=== PATIENT | female | born 1960 | race Caucasian/White ===

== ENCOUNTER → 2024-02-28 08:07 | Outpatient (REF) | payer OTHER, SELFPAY | LOC: HWRCS 08:07 | PROVIDERS: ATTENDING PHYSICIAN Internal Medicine Cardiovascular Disease; FAMILY PHYSICIAN Family Medicine | DX: R07.2 Precordial pain (principal); E78.5 Hyperlipidemia, unspecified; I49.9 Cardiac arrhythmia, unspecified | CPT/HCPCS: 93306 ==

== ENCOUNTER → 2024-03-02 07:25 | Outpatient (REF) | payer OTHER, SELFPAY | LOC: DHCBC/DCA 07:25 | PROVIDERS: ATTENDING PHYSICIAN Internal Medicine Cardiovascular Disease; FAMILY PHYSICIAN Family Medicine | DX: R07.2 Precordial pain (principal); E78.5 Hyperlipidemia, unspecified; I49.9 Cardiac arrhythmia, unspecified | CPT/HCPCS: 78452; 93017; A9500; J2785 ==

== ENCOUNTER → 2024-09-11 08:46 | Outpatient (REF) | payer OTHER, SELFPAY | LOC: WDC 08:46 | PROVIDERS: ATTENDING PHYSICIAN Obstetrics & Gynecology; FAMILY PHYSICIAN Family Medicine | DX: Z78.0 Asymptomatic menopausal state (principal); Z12.31 Encounter for screening mammogram for malignant neoplasm of breast | CPT/HCPCS: 77063; 77067; 77080 ==

== ENCOUNTER 2025-02-28 06:25 | Day surgery (SDC) | payer OTHER, SELFPAY | END 2025-02-28 15:57 | disposition home or self-care (01) | LOC: GI 06:25 | PROVIDERS: ATTENDING PHYSICIAN Internal Medicine Gastroenterology | DX: Z12.11 Encounter for screening for malignant neoplasm of colon (principal); D12.0 Benign neoplasm of cecum; D12.2 Benign neoplasm of ascending colon; D12.3 Benign neoplasm of transverse colon; D12.4 Benign neoplasm of descending colon; K63.5 Polyp of colon; D12.8 Benign neoplasm of rectum; K57.30 Diverticulosis of large intestine without perforation or abscess without bleeding; K62.89 Other specified diseases of anus and rectum; K22.70 Barrett's esophagus without dysplasia; K22.10 Ulcer of esophagus without bleeding; K21.00 Gastro-esophageal reflux disease with esophagitis, without bleeding; K44.9 Diaphragmatic hernia without obstruction or gangrene; Z86.0101 Personal history of adenomatous and serrated colon polyps | CPT/HCPCS: 45385; 45380; 43239; 88305 ==

== ENCOUNTER → 2025-03-04 08:12 | Outpatient (REF) | payer OTHER, SELFPAY | LOC: HWRAD 08:12 | PROVIDERS: ATTENDING PHYSICIAN Internal Medicine Critical Care Medicine; FAMILY PHYSICIAN Family Medicine | DX: Z87.891 Personal history of nicotine dependence (principal) | CPT/HCPCS: 71271 ==

== ENCOUNTER 2025-03-26 07:29 | Emergency (ER) | payer OTHER, SELFPAY ==
[2025-03-26 07:32] VITALS: BP 143/101
[2025-03-26 08:30] LABS: ALT (SGPT) 41 U/L (0-35); AST (SGOT) 45 U/L (14-36); Albumin 4.3 g/dl (3.5-5.0); Alkaline Phosphatase 78 U/L (38-126); Blood Urea Nitrogen 17 mg/dl (7-17); Calcium 9.1 mg/dl (8.4-10.2); Carbon Dioxide 25 mmol/L (22-30); Chloride 106 mmol/L (98-107); Glucose 123 mg/dl (70-99); Potassium 3.5 mmol/L (3.5-5.1); Sodium 139 mmol/L (135-145); Total Protein 6.8 g/dl (6.3-8.2); eGFR > 60.00
[2025-03-26 08:31] LABS: % Basophils 0.7 % (0-2); % Eosinophils 3.1 % (0-6); % Immature Granulocytes 0.1 % (0-0.5); % Lymphocytes 13.6 % (20.5-51.1); % Monocytes 6.5 % (1.7-9.3); Absolute Basophils 0.1 10^3/uL (0-0.2); Absolute Eosinophils 0.2 10^3/uL (0-0.7); Absolute Monocytes 0.5 10^3/uL (0.1-0.6); Absolute Neutrophils 5.4 10^3/uL (1.4-6.5); Hematocrit 36.9 % (37.0-47.0); Hemoglobin 11.8 g/dL (12.0-16.0); Mean Platelet Volume 10.7 fL (7.4-10.4); Nucleated Red Blood Cells % 0 %; Platelet Count 191 10^3/uL (130-400); Red Blood Cell Count 4.92 10^6/uL (4.20-5.40); Red Cell Dist. Width 16.6 % (11.5-14.5); White Blood Cell Count 7.1 10^3/uL (4.8-10.8)
--- NOTE | 2025-03-26 08:36 | ED.GENMED ---
History of Present Illness
General
Chief Complaint: Abdominal Pain
Source: patient
Exam Limitations: none
Time Seen by Provider: 03/26/25 07:52
Nursing documentation reviewed up to this point in time: agreed with
History of Present Illness
History of Present Illness:
65-year-old female past medical history of hypertension hyperlipidemia presenting to the emergency department today with concerns of nausea vomit diarrhea starting yesterday morning ongoing today. Also noted some red blood in her stool this
morning. Has had some intermittent abdominal pain mainly to the left lower quadrant. Had 1 episode of vomiting yesterday multiple episodes of diarrhea yesterday as well.
Past History
Past History
ED Past Medical History: Arrthythmia, COPD, HTN and Hypercholesterolemia
ED Past Surgical History: Cardiac (Cardiac catheter several years ago, normal coronaries.) and
Social History
Tobacco: Smoker
Alcohol: Occasional
Drug: None
Personal:
Living: with family
Employment: Employed
Family History
Family History: Hypertension and Other (Cerebral aneurysm)
Review of Systems
Review of Systems
Allergies reviewed?: Yes
All Other Systems: ROS reviewed and negative except as documented in HPI and ROS
Phy Exam
Physical Exam
Physical Exam:
GENERAL: Alert , in no apparent distress
EYE: pupils equal and reactive
NECK: Supple, no significant adenopathy.
ENT: o/p clr, mmm.
CARDIAC: Regular rate and rhythm .
LUNGS: Clear breath sounds bilaterally, no acute respiratory distress, no wheezes/rales/rhonchi
ABDOMEN: Mild pain to the left lower quadrant, rectal examination with multiple external hemorrhoids with no active bleeding. Stool was brown in color vaguely guaiac positive.
NEUROLOGICAL: Alert and oriented, no focal neuro deficits
SKIN: Warm and dry, skin intact.
MUSCULOSKELETAL: No edema, well perfused.
PSYCH: Normal and appropriate interaction.
Course
Orders/Labs/Results
Orders:
Orders
03/26/25 08:11
Complete Blood Count/With Diff Urgent
Comprehensive Metabolic Panel Urgent
Lipase Urgent
Comment: ADD ON
03/26/25 08:31
CT Abd/Pel (IV only)-DH only Urgent
Comment:
Reason For Exam: llq pain
0.9% Sodium Chloride 1000 ml [Nss] 1,000 ml IV BOLUS
Ondansetron Injectable [Zofran] 4 mg IV NOW STA
03/26/25 08:39
Add On- LAB Urgent
Tests Added?: lipase
03/26/25 08:52
Dicyclomine HCl [Bentyl] 20 mg IM NOW STA
03/26/25 09:23
Urinalysis Reflex To Culture Urgent
Date Specimen was Collected: 03/26/25
Time Specimen was Collected: 08:58
Urine Microscopic Reflex Cult Urgent
Urine Culture Urgent
JOSE Source: U
Specimen Description:
Date Specimen was Collected: 03/26/25
Time Specimen was Collected: 08:58
03/26/25 11:43
Amoxicillin 875 mg/Clav 125 mg [Augmentin 875 mg/125 mg] 1 tablet PO NOW STA
Abnormal Lab Results
03/26/25 03/26/25
08:11 09:23
Hgb 11.8 L g/dL
(12.0-16.0)
Hct 36.9 L %
(37.0-47.0)
MCV 75.0 L fL
(81.0-99.0)
MCH 24.0 L pg
(27.0-31.0)
MCHC 32.0 L g/dL
(33.0-37.0)
RDW 16.6 H %
(11.5-14.5)
MPV 10.7 H fL
(7.4-10.4)
Absolute Lymphs (auto) 1.0 L 10^3/uL
(1.2-3.4)
Neutrophils % 76.0 H %
(42.2-75.2)
Lymphocytes % 13.6 L %
(20.5-51.1)
Glucose 123 H mg/dl
(70-99)
AST 45 H U/L
(14-36)
ALT 41 H U/L
(0-35)
Ur Occult Blood Reflex 2+ A
(Negative)
Leukocyte Esterase Rfl 1+ A
(Negative)
Urine RBC 3-6 A /HPF
(0-2)
03/26/25 08:11
03/26/25 08:11
Vital Signs
Initial and Last Documented VS:
Initial Vital Signs
Temp Pulse Resp BP Pulse Ox
98.0 F 77 18 143/101 98
03/26/25 07:32 03/26/25 07:32 03/26/25 07:32 03/26/25 07:32 03/26/25 07:32
Last Documented Vital Signs
Temp Pulse Resp BP Pulse Ox
98.0 F 62 16 155/82 99
03/26/25 07:32 03/26/25 10:27 03/26/25 10:27 03/26/25 10:27 03/26/25 10:27
MDM/Problems Addressed
MDM/Problems Addressed:
65-year-old female presenting to the emergency department today with concerns of lower abdominal pain nausea vomiting diarrhea starting yesterday. On arrival vital signs are normal patient no distress does have some discomfort to the left lower
quadrant on examination. Rectal examination with multiple hemorrhoids but no evidence of ongoing bleeding. HERE hemoglobin of 11.8 no emergent change increased from previous baseline. Otherwise no significant bleeding here on examination. Labs
unremarkable CT scan showing colitis treated as potential infectious colitis otherwise stable for outpatient follow-up. Return precautions. Incidental findings were discussed with the patient who will follow-up closely for the kidney lesion.
*Critical Care Note
Total Time (30-74mins, 75-104mins- exclusive of procedures): Not Applicable
ED Attending Note
-
Portions of this chart may have been created with voice recognition software.� Occasional wrong word or��sound alike� substitutions may have occurred due to the inherent limitations of voice recognition software.
Discharge Plan
Departure
Patient Disposition: Home (Routine Discharge)
Date of Disposition: 03/26/25
Time of Disposition: 11:47
Patient with high blood pressure during this ER visit?: No
Condition: Good
Covid-19: Not Applicable
Discharge Problem:
Colitis
Instructions: Colitis
Prescriptions:
New
amoxicillin-pot clavulanate 875-125 mg tablet
1 tab PO BID 7 Days Qty: 14 0RF
No Action
ezetimibe-simvastatin [Vytorin 10-40] 1 EACH tablet
1 tab PO DAILY
metoprolol succinate 100 mg tablet extended release 24 hr
100 mg PO DAILY
Trelegy Ellipta 200-62.5-25 mcg Blister With Device
1 inh INHALATION R DAILY
albuterol sulfate 90 mcg/actuation HFA aerosol inhaler
2 puff inhalation R Q6HPRN PRN (Reason: shortness of breath or wheezing)
pantoprazole [Protonix] 40 mg Tablet,Delayed Release (Dr/Ec)
40 mg PO BID
Referrals:
Turner Price DO [Family Provider] -
Activity Restrictions/Additional Instructions:
You came to the emergency department today with concerns of diarrhea and some abdominal pain. Here you were found to have colitis. Please take the prescribed antibiotic and follow close with the primary care doctor. Please also follow-up for your
incidental findings on CT. Return for any worsening, new or concerning symptoms.
Interventions
Interventions:
*Risk Screen - Suicide Last Done: 03/26/25 07:32
*General Assessment Last Done: 03/26/25 07:32
*Neglect/Abuse Screening Last Done: 03/26/25 07:32
*ED- Fall Risk Assessment Last Done: 03/26/25 07:59
*ED COVID-19 Vaccine History Last Done: 03/26/25 07:59
XG-Ryjkrx-Efnjpynswh Assessment Last Done: 03/26/25 08:00
Discharge Date and Time
Print Language: FRENCH
[2025-03-26] MEDS: NSS 1000 IV (08:40)
[2025-03-26] MEDS: BENTYL 20 MG IM (08:55)
[2025-03-26 09:45] LABS: Lipase 62 U/L (23-300)
[2025-03-26 09:46] LABS: Urine Character Clear (Clear); Urine Color Yellow
[2025-03-26 09:47] LABS: Urine Albumin Negative (Neg - Trace); Urine Glucose Negative (Negative); Urine Leukocyte 1+ (Negative); Urine Nitrite Negative (Negative); Urine Occult Blood 2+ (Negative)
[2025-03-26 09:48] LABS: Urine Bilirubin Negative (Negative); Urine Ketone Negative (Negative); Urine Urobilinogen Negative (Neg - 1+)
[2025-03-26 10:17] LABS: Urine Squamous Cell 21-25 /LPF (Few)
[2025-03-26 10:18] LABS: Urine Amorphous Seen
[2025-03-26 10:19] LABS: Urine Granular Cast 0-2 /LPF (0)
[2025-03-26 10:20] LABS: Urine White Cell 0-2 /HPF (0-5)
[2025-03-26 10:27] VITALS: BP 155/82
[2025-03-26] MEDS: AUGMENTIN 875 MG/125 MG 1 TABLET PO (11:46)
[2025-03-26 11:49] VITALS: BP 157/87
== END 2025-03-26 11:59 | disposition home or self-care (01) ==
LOC: EMR 07:29
PROVIDERS: Physician Assistant; EMERGENCY PHYSICIAN Emergency Medicine; FAMILY PHYSICIAN Family Medicine
DX: K52.9 Noninfective gastroenteritis and colitis, unspecified (principal); I10 Essential (primary) hypertension; E78.00 Pure hypercholesterolemia, unspecified; J44.9 Chronic obstructive pulmonary disease, unspecified; F17.200 Nicotine dependence, unspecified, uncomplicated; Z82.49 Family history of ischemic heart disease and other diseases of the circulatory system
CPT/HCPCS: 99284; 96372; 74177; 80053; 81003; 81015; 83690; 85025; 87086; Q9967